=== PATIENT | female | born 1990 | race American Indian/Alaskan Native ===

== ENCOUNTER 2018-03-04 05:39 | Inpatient (IN) ==
[2018-03-04] MEDS ORDERED: Vancomycin Inj 1gm vial ONE (05:52)
[2018-03-04] MEDS ORDERED: Clindamycin 900mg (Premix) 900 MG/50 ML BAG IV ONE ×2 (05:52→06:00)
[2018-03-04] MEDS ORDERED: Sodium Chloride 0.9% 250 ML ONE (05:53)
[2018-03-04] MEDS ORDERED: Lactated Ringers 1,000 ML PRIMARY IV ONE ×4 (05:53→09:53)
[2018-03-04] MEDS ORDERED: LIDOCAINE W/ SODIUM BICARB 0.5 ML SYR ONE (05:53)
[2018-03-04] MEDS ORDERED: LIDOCAINE W/ SODIUM BICARB 0.5 ML SYR SUBD ONE (06:00)
[2018-03-04] MEDS ORDERED: Nasal Sanitizer POPSWAB ampule 3 AMP (Nozin) PREOP DOSE ENOS SCH (06:00)
[2018-03-04 06:10] LABS: URINE SPECIFIC GRAVITY - MAN 1.034
[2018-03-04] MEDS ORDERED: Sodium Chloride 0.9% vial 20 ML ONE (06:59)
[2018-03-04] MEDS ORDERED: MIDAZOLAM HCL 2 MG/2 ML VIAL ONE (06:59)
[2018-03-04] MEDS ORDERED: fentaNYL Inj 250 MCG/5 ML VIAL ONE (06:59)
[2018-03-04] MEDS ORDERED: PROPOFOL 10 MG/1 ML (200 MG/20 ML) VIAL IV ONE (06:59)
[2018-03-04] MEDS ORDERED: LIDOCAINE MPF 2% - 5 ML (20 MG/1 ML) ONE (06:59)
[2018-03-04] MEDS ORDERED: BACITRACIN 50,000 UNIT VIAL IRRIG ONE (07:00)
[2018-03-04] MEDS ORDERED: BUPIVACAINE 0.25% W/ EPI - 10 ML VIAL ONE ×2 (07:00→09:49)
[2018-03-04] MEDS ORDERED: REMIFENTANIL HCL 2 MG VIAL IV ONE (07:06)
[2018-03-04] MEDS ORDERED: KETAMINE HCL 100 MG/2 ML SYRINGE IV ONE (08:06)
[2018-03-04] MEDS ORDERED: ePHEDrine Inj 50 MG/ML AMP ONE (08:07)
[2018-03-04] MEDS ORDERED: Propofol 1,000 MG/100 ML VIAL IV ONE (08:39)
[2018-03-04] MEDS ORDERED: TRANEXAMIC ACID 1,000 MG / 10 ML VIAL ONE (09:21)
[2018-03-04] MEDS ORDERED: BUPivacaine 0.5%/Epi Inj 50 ML VIAL ONE (09:48)
[2018-03-04] MEDS ORDERED: BUPivacaine Inj 0.5% PF (5mg/ml) 10ml vial ONE (09:53)
[2018-03-04] MEDS ORDERED: HYDROmorphone 2 MG/1 ML ONE (10:02)
[2018-03-04] MEDS ORDERED: ONDANSETRON 4 MG/2 ML VIAL ONE (10:20)
[2018-03-04] MEDS ORDERED: Prochlorperazine Edisylate Inj 10mg/2ml vial IVP PRN ×2 (10:36→12:25)
[2018-03-04] MEDS ORDERED: MAGNESIUM 400 MG/5 ML - 30 ML (MILK OF MAGNESIA) PO PRN ×2 (10:36→12:25)
[2018-03-04] MEDS ORDERED: DOCUSATE 100 MG CAPSULE PO PRN ×2 (10:36→12:25)
[2018-03-04] MEDS ORDERED: Fleet Enema 133ml RECTAL PRN ×2 (10:36→12:25)
[2018-03-04] MEDS ORDERED: MORPHINE SULFATE 2 MG/1 ML IVP PRN ×3 (10:36→12:25)
[2018-03-04] MEDS ORDERED: HYDROcodone-APAP 5 MG -325 MG TABLET PO PRN ×2 (10:36→12:25)
[2018-03-04] MEDS ORDERED: BISACODYL 5 MG TABLET PO PRN ×2 (10:36→12:25)
[2018-03-04] MEDS ORDERED: ONDANSETRON 4 MG/2 ML VIAL IVP PRN ×2 (10:36→12:25)
[2018-03-04] MEDS ORDERED: PROMETHAZINE 25 MG/1 ML VIAL IM PRN ×3 (10:36→12:25)
[2018-03-04] MEDS ORDERED: HYDROcodone-APAP 7.5 MG-325 MG TABLET PO PRN ×2 (10:36→12:25)
[2018-03-04] MEDS ORDERED: DIAZEPAM 5 MG TABLET PO PRN (10:36)
[2018-03-04] MEDS ORDERED: Ondansetron ODT Tab 4 MG TAB PO PRN ×2 (10:36→12:25)
[2018-03-04] MEDS ORDERED: MAGNESIUM CITRATE 296 ML SOLUTION PO PRN ×2 (10:36→12:25)
[2018-03-04] MEDS ORDERED: HYDROcodone-APAP 10 MG-325 MG TABLET PO PRN (10:36)
[2018-03-04] MEDS ORDERED: Vancomycin-PHA to Dose IV SCH (10:45)
--- NOTE | 2018-03-04 10:46 | GEN.OPNOTE ---
Operative Note Surgery Date: 03/04/18 Preoperative Diagnosis: 1. Left L5 radiculopathy. 2. Large left L4-5 paracentral/lateral herniated nucleus pulposus, caudally migrated from the disc space effacing the lateral recess and impinging upon and posteriorly displacing the transversing left L5 nerve root. Postoperative Diagnosis: 1. Left L5 radiculopathy. 2. Large left L4-5 paracentral/lateral herniated nucleus pulposus, caudally migrated from the disc space effacing the lateral recess and impinging upon and posteriorly displacing the transversing left L5 nerve root. Procedure: 1.) Left L4-5 microlumbar discectomy. (CPT code: 56747). 2.) Use of the operative microscope for the microsurgical techniques used for the procedure. (CPT code: 44088). 3.) Use of intra-operative fluoroscopy for localization of correct surgical level. 4.) Use of intra-operative neuromonitoring including EMG's and SSEP's. Surgeon: Mati Herron MD Turret Punch Operator: DEBBIE Santos Anesthesia Provider: Kunal Monge CRNA Anesthesia Type: General Estimated Blood Loss (mL): 100 Fluids: See anesthesia record Pathology: None Indications: Ms. Barker is a 27 year old female with over three months of left buttock and left leg pain that started after a fall with her symptoms unresponsive to non- operative therapies. She had a large caudally migrated left L4-5 herniated nucleus propulsis on imaging. We discussed proceeding with a left L4-5 microlumbar discectomy. She wished to proceed with surgical treatment. Findings: Large subligamentous left L4-5 herniated nucleus propulsis extruded from the disc space as well as caudally behind the L5 vertebral body Complications: None Operative Summary: Ms. Barker was met in the preoperative area. Her surgical history and physical in her chart was reviewed. The procedure to be performed was confirmed with Ms. Barker and this matched what was written on the patient's consent form. Any questions that Mrs. Barker or her family members had were answered before she was taken back to the operating room suite. Ms. Barker was brought back to the operating room suite and put under general anesthesia and intubated by the anesthesia staff. She had a Garcia catheter placed or bladder for the procedure. She had pneumatic compression hose placed on her lower legs bilaterally. Ms. Barker was carefully rolled over onto the Grover surgical table with her a dotty gently positioned upwards with her shoulders abducted less than 90. Her arms were well-padded with foam padding on top of the padding the surgical armboards. The region of her chest and axilla was checked to be free with no pressure points over the region of the brachial plexus bilaterally. Her breasts were checked be below the chest pad of the Grover table with no pressure points over the nipples. All bony prominences were well padded. Her Garcia catheter was checked be free from kinks. Her pneumatic compression hose was attached pneumatic compression device. The C-arm fluoroscopy unit was used to help localize the skin incision for the approach the intended surgical level. The skin was marked with a skin marker was several crosshatches made with a skin marker as well. Ms. Barker was prepped and draped in usual and standard fashion. She was given 900 mg of Cleocin and a gram of vancomycin IV for perioperative antibiosis. She was given 10 mg of Decadron IV. A standard surgical timeout was performed identifying the correct patient, the correct procedure, and the correct equipment being available for the procedure. The intended skin incision was injected subcutaneously with quarter percent Marcaine with 1 in 200,000 epinephrine. 10 mL of local anesthetic was used. The skin was incised with 10 blade scalpel and all dermal and superficial bleeding points were controlled with bipolar cautery. Dissection was continued down through the copious subcutaneous tissue to the lumbar fascia. The lumbar fascia was incised along the border the spinous processes on the left and subperiosteal dissection was performed down the spinous processes and out over the lamina. When the inferior aspect of the lamina was identified a Anderson 4 was placed underneath the lamina and lateral fluoroscopy localized the L4-5 level on the left. Continued subperiosteal dissection was performed until the majority of the L4 lamina and the majority of the L5 lamina and the medial aspect of the L4- 5 facet joint on the left was exposed. A Sean retractor was placed for self-retaining retraction. The operative microscope was brought into the surgical field and used for micro surgical techniques used for the procedure. The high-speed [employer] Gorge drill with a matchstick bit was used to perform a hemilaminotomy and medial facetectomy and also used to remove remove the upper leading edge of the L5 lamina over the canal and lateral recess. An up angled curette was used to strip the insertion of the yellow ligament from underneath remaining aspect the L4 lamina. The plane between the yellow ligament and the dura was established. The yellow ligament was completely removed in the hemilaminectomy/medial facetectomy site exposing the thecal sac, the lateral recess, and the takeoff of the transversing L5 nerve root. The transversing L5 nerve root was exposed in the center portion of the bony decompression. A Anderson 4 instrument was used to carefully dissect the soft tissue caudal to the transversing L5 nerve root as it proceeded out it's neuroforamen underneath the L5 pedicle. The dura could be seen to be quite tented dorsally from the left L4-5 subligamentous disc herniation extruded caudally underneath the L5 nerve root also posteriorly displacing the L5 nerve root and with the subligamentous disc material continuing caudally in the lateral recess caudal to the exit of the L5 nerve root out it's neuroforamen, continuing to posteriorly displace the thecal sac in this region In the axilla of the transversing L5 nerve root careful dissection was performed exposing the plane between the stretched posterior longitudinal ligament and the inferior aspect of the transversing L5 nerve root and the thecal sac. The base of the stretched ligament was carefully punctured with a nerve hook and disc material was carefully teased out with a nerve hook with the fragments subsequently being removed with a pituitary rongeur. A number of additional disc fragments were carefully teased out from underneath the posterior longitudinal ligament using the nerve hook or the small ball-tip instrument with the fragments being removed with the pituitary rongeur. The pocket of subligamentous disc material was completely removed in this region which was confirmed by visual inspection as well as by palpation with a Aarti instrument. Attention was turned to the disc space proper. A Anderson 4 was used to carefully dissect the soft tissue adjacent to the takeoff or shoulder of the transversing L5 nerve root identifying the disc space proper. The large subligamentous disc herniation started at the level of the disc space with some of the disc material extruded underneath the thecal sac and the proximal aspect of the transversing L5 nerve root behind the superior posterior aspect of the L5 vertebral body. A Kareem nerve root retractor was used to gently retract the thecal sac and the takeoff of the L5 nerve root. Epidural veins over the disc space were coagulated with bipolar cautery turned down to a low setting. An annulotomy was performed with a 15 blade scalpel with this material being removed with a pituitary rongeur. The fragments of disc in the disc space proper were disrupted and part of the disc space was essentially empty from the large extruded disc herniation. What disc material there was however in the posterior aspect of the disc space was removed with a pituitary rongeur both straight instrument and an up angled pituitary rongeur. The subligamentous disc herniation extending underwritten the thecal sac and the proximal aspect of the transversing L5 nerve root was removed by working under the thecal sac with a medium Simon down-biting curet with the large fragments of disc being removed from this area. Palpating medially under the thecal sac there was still dorsal displacement of the thecal sac from the bulging annulus medially in the central portion of the canal. This was carefully dissected underneath the thecal sac using both Aarti instrument and the medium down-biting curet with the bulging annulus being removed with a pituitary rongeur. Excellent decompression of spinal canal the lateral recess and the exiting L4 nerve root and the transversing L5 nerve root and the L5 nerve root as it exited out it's neuroforamen and the thecal sac caudal to the exit of the L5 nerve root out its foramen was assured both by visual inspection as well as by palpation in the canal and lateral recess in these regions and around the nerve structures. The surgical site was copiously irrigated with bacitracin irrigation. Meticulous hemostasis was performed with bipolar cautery turned down to a low setting as well as with FloSeal hemostatic agent. Surgical site was again irrigated with bacitracin irrigation. The hemilaminotomy and medial facetectomy site and all dural elements were covered with FloSeal hemostatic agent. The closure portion of the procedure was begun. The Sean retractor was removed. The duran of the dissection plane were inspected for any bleeding points. Any identified were coagulated with bipolar cautery. A cerebellar retractor was used to retract the copious subcutaneous tissue and the lumbar fascia was closed tightly with #1 Vicryl suture in an interrupted fashion. The cerebellar retractor was then removed. The surgical site was again copiously irrigated with bacitracin irrigation. The deep subcutaneous tissue and fascia was reapproximated with 2-0 Vicryl suture in a interrupted fashion. The more superficial subcutaneous tissue was closed with a nother layer of 2-0 Vicryl suture in a inverted interrupted fashion. The dermis and superficial subcutaneous tissue was reapproximated with 3-0 Vicryl suture in an inverted interrupted fashion. The Ioban drape was pulled back from the skin edges the skin edges were cleansed with bacitracin split soaked sponge and dried with sterile dry sponge. The incision was covered with Steri-Strips and the incision was then dressed. All surgical drapes removed from Ms. Barker. She was carefully rolled over onto the PACU stretcher. She was awoken and a the anesthesia staff. She was taken the recovery room stable condition. All surgical counts reported as correct by the scrub and circulating personnel. A physician's it administrative assistant, Mrs. Genevieve Hector PA-C, assisted with the procedure including the exposure and closure portions of the procedure. She also provided irrigation and suctioning throughout the procedure. She also skillfully and carefully retracted the nerve structures during the more critical portions of the procedure, the discectomy.
[2018-03-04] MEDS ORDERED: fentaNYL Inj 100 MCG/2 ML VIAL IVP PRN ×2 (11:21→12:25)
[2018-03-04] MEDS ORDERED: LIDOCAINE W/ SODIUM BICARB 0.5 ML SYR SUBD PRN (11:21)
[2018-03-04] MEDS ORDERED: HYDROmorphone 2 MG/1 ML IVP PRN ×2 (11:21→12:25)
--- NOTE | 2018-03-04 11:22 | CRNA.PROGR ---
Anesthesia Time - Procedure/Recovery Time Start Date: 03/04/18 End Date: 03/04/18 Anesthesia : Time In: 07:30 Anesthesia : Time Out: 10:38 Anesthesia : Total Time: 188 - Total Anesthesia Time Total Anesthesia Time (minutes): 188 - Other Weight: 79.379 kg Height: 5 ft Body Mass Index (BMI): 34.2 Physical Status: P2 Anesthesia Type: General Anesthesia : ET (Prone)
--- NOTE | 2018-03-04 11:22 | CRNA.PROGR ---
Anesthesia Recovery Phase I - Post Anesthesia Evaluation Patient's Condition on Arrival in Phase I: Stable Pain Level: 3
[2018-03-04] MEDS ORDERED: Lactated Ringers 1,000 ML PRIMARY IV SCH (11:30)
--- NOTE | 2018-03-04 11:47 | NEURO.PROG ---
Subjective Post Op Day: 0 Pain Management: PO Garcia Catheter: Yes Diet: Regular Ambulating: Yes Additional Details: Just arrived on surgical floor. Awake, alert, and oriented. Lying comfortably in bed. Left leg feels good. Moving all extremities. Good/strong dorsiflexion/plantarflexion bilaterally. PLAN: 1.) Continue post-operative antibiotics. 2.) Continue post-operative pain control. 3.) Advance diet. 4.) Mobilize. Objective : Data - Vital Signs Vital Signs and I&O: Vital Signs - Last Taken Temperature 97.8 F 03/04/18 11:43 Pulse Rate 82 03/04/18 11:43 Respiratory Rate 20 03/04/18 11:43 Blood Pressure 108/74 03/04/18 11:43 Pulse Ox 97 03/04/18 11:43 Intake and Output (24hr x 4 totals) 03/02/18 03/03/18 03/04/18 03/05/18 05:59 05:59 05:59 05:59 Intake Total 2400 / 2400 Output Total 175 / 175 Balance 2225 / 2225
[2018-03-04] MEDS: HYDROcodone-APAP 10 MG-325 MG TABLET PO PRN ×3 (13:00→21:24)
--- NOTE | 2018-03-04 14:54 | CONSULT ---
Consult Note - Consult Reason for Consult: PostOp Consulation : Neuro Primary Care Provider: NONE NONE - History of Present Illness History of Present Illness: This very nice 27-year-old female who fell on ice 3 months ago and the was operated by Dr. Herron today a left L4-5 microlumbar discectomy hospitalist service was consult with postop. Patient denies chest pain nausea or vomiting and is doing physical therapy. She has no other complaints or medical issues she tells me Past Medical History Medical History: Asthma, migraines Surgical History: Back surgery Tobacco Use: Current Every Day Smoker In the Past 12 Months, Have Used or Abuse Any of the Following Substance: None Review of Systems - Review of Systems All Systems: Reviewed & No Additional Complaints Except as Stated - Respiratory Respiratory: DENIES: Negative System Review, Cough, Sputum, Dyspnea At Rest, Dyspnea with Exertion, Pleuritic Pain, Hemoptysis, Wheezing, Other, See HPI - Cardiovascular Cardiovascular: DENIES: Negative System Review, Chest Pain, Edema, Syncope, Palpitations, Orthopnea, Paroxysmal Nocturnal Dyspnea, Other, See HPI - Gastrointestinal Gastrointestinal / Abdominal: DENIES: Negative System Review, Nausea, Vomiting, Diarrhea, Constipation, Abdominal Pain, Bloody Stool, Poor Appetite, Heartburn, Regurgitation, Bloating, Lactose Intolerance, Melena, Bright Red Blood per Rectum, Other, See HPI Medication / Allergies Home Medications: Home Medications Medication Instructions Recorded Confirmed Type NK 02/01/18 02/21/18 History Allergies/Adverse Reactions: Allergies Allergy/AdvReac Type Severity Reaction Status Date / Time ibuprofen [From Motrin] Allergy HIVES Verified 03/04/18 11:36 Penicillins Allergy HIVES Verified 03/04/18 11:36 Exam - Vitals Vital Signs: Vital Signs Temperature 97.8 F Temperature Source Oral Pulse Rate [Pulse Oximeter] 82 Pulse Rate 86 Respiratory Rate 20 Blood Pressure [Left Arm] 108/74 Blood Pressure 107/65 Pulse Ox 97 Oxygen Flow Rate 2 Oxygen Delivery Method Nasal Cannula Height 5 ft Weight 175 lb - General General Appearance: No Acute Distress, Cooperative - Respiratory Respiratory Exam: POSITIVE: Clear to Auscultation - Bilaterally, Breathing Non Labored, Normal To Percussion, Normal to Percussion and Palpation - Cardiovascular Cardiovascular Exam: POSITIVE: RRR, No Murmur, No Clicks, No Gallops, No Rubs, PMI Non-Displaced - GI/Abdominal GI/Abdominal Exam: POSITIVE: Normal Bowel Sounds, Non Tender, Non Distended, Soft, No Masses, No Hepatomegaly, No Splenomegaly, No Organomegaly - Rectal Rectal Exam: POSITIVE: Deferred Assessment and Plan - Patient Problems (1) Asthma Current Visit: No Status: Chronic Comment: Stable patient does not have any symptoms Code(s): J45.909 - Unspecified asthma, uncomplicated (2) Migraines Current Visit: No Status: Chronic Comment: Patient does not have a migraine Code(s): G43.909 - Migraine, unspecified, not intractable, without status jung rainosus (3) Sleep apnea Current Visit: No Status: Chronic Comment: Recommended the CPAP and evaluation as an outpatient Code(s): G47.30 - Sleep apnea, unspecified (4) History of back surgery Current Visit: Yes Status: Acute Comment: Deferred to Dr. Herron for postop management and PT and OT orders and pain control Code(s): Z98.890 - Other specified postprocedural states - Assessment / Plan Additional Assessment/Plan Details: No medical issues to address at present time I told the nurses to call me if there is a problem
[2018-03-04] MEDS: Clindamycin 900mg (Premix) 900 MG/50 ML BAG IV SCH ×2 (15:02→22:03)
[2018-03-04] MEDS ORDERED: Clindamycin 900mg (Premix) 900 MG/50 ML BAG IV SCH (16:00)
[2018-03-04] MEDS: DIAZEPAM 5 MG TABLET PO PRN (19:41)
[2018-03-05] MEDS: HYDROcodone-APAP 10 MG-325 MG TABLET PO PRN ×3 (01:13→10:13)
[2018-03-05] MEDS: DIAZEPAM 5 MG TABLET PO PRN (01:14)
[2018-03-05 04:46] LABS: BASOPHILS # (AUTO) 0.01 10*3/UL; BASOPHILS % (AUTO) 0.1 % (0-1); EOSINOPHILS # (AUTO) 0 10*3/UL; EOSINOPHILS % (AUTO) 0 % (0-8); Hematocrit [HCT] 37.3 % (37.0-47.0); Hemoglobin [HGB] 12.6 g/dL (12.0-16.0); LYMPHOCYTES # (AUTO) 1.62 10*3/uL; MEAN CORPUSCULAR HEMOGLOBIN 31.7 PG (27-31); MEAN CORPUSCULAR HGB CONC 33.8 g/dL (33-37); MEAN CORPUSCULAR VOLUME 93.7 FL (81-99); MEAN PLATELET VOLUME 9.7 FL (7.4-12.2); MONOCYTES # (AUTO) 0.77 10*3/UL (0.3-0.8); MONOCYTES % (AUTO) 5.3 % (5-15); NEUTROPHILS # (AUTO) 11.99 10*3/UL; NEUTROPHILS % (AUTO) 83.3 % (50-80); RED BLOOD COUNT 3.98 10^6/uL (4.20-5.40)
[2018-03-05 04:59] LABS: BLOOD UREA NITROGEN 4 mg/dL (7-22)
[2018-03-05 05:21] LABS: PLATELET MORPHOLOGY COMMENT NORMAL MORPHOLOGY (NORM); RBC MORPHOLOGY COMMENT NORMAL MORPHOLOGY (NORM); WBC MORPHOLOGY COMMENT NORMAL MORPHOLOGY (NORM)
--- NOTE | 2018-03-05 05:53 | NEURO.PROG ---
Subjective Post Op Day: 2 Pain Management: PO Garcia Catheter: No Flatus: Yes Diet: Regular Ambulating: Yes Additional Details: Justine is awake and alert and ready to go home. V/S are stable. Incision is dry and intact. Her strength is full in dorsi/plantar flexion and knee flexion bilaterally. She says that the preop symptoms of numbness and pain are completely resolved. Incidentally she also says the numbness she had in her left hand preop has resolved. She has ambulated multiple times through the night without difficulty. Her pain is in good control with oxydocone and we will start her on flexeril for home. She was given post operative instructions regarding activity with her corset, no driving while on narcotics, and care of her incision with chlorhexadine wipes and dressing changes x 7 days. She was also given a post op appointment to see Dr. Herron in the [place] [facility] on 03/28/2018 at 10:00. Plan discharge home. Objective : Data - Labs CBC and BMP: 03/05/18 04:21 03/05/18 04:21 - Vital Signs Vital Signs and I&O: Vital Signs - Last Taken Temperature 98.0 F 03/05/18 04:17 Pulse Rate 56 L 03/05/18 04:17 Respiratory Rate 16 03/05/18 04:17 Blood Pressure 98/65 03/05/18 04:17 Pulse Ox 99 03/05/18 04:17 Intake and Output (24hr x 4 totals) 03/02/18 03/03/18 03/04/18 03/05/18 05:59 05:59 05:59 05:59 Intake Total 5621 / 5621 Output Total 3725 / 3725 Balance 1896 / 1896
--- NOTE | 2018-03-05 06:06 | NEURO.PROG ---
Subjective Post Op Day: 1 Pain Management: PO Garcia Catheter: No Flatus: Yes Diet: Regular Ambulating: Yes Additional Details: Correction on previous progress note is that Justine is taking Hydrocodone, not oxycodone. She was discharged on Hydrocodone. Objective : Data - Labs CBC and BMP: 03/05/18 04:21 03/05/18 04:21 - Vital Signs Vital Signs and I&O: Vital Signs - Last Taken Temperature 98.0 F 03/05/18 04:17 Pulse Rate 56 L 03/05/18 04:17 Respiratory Rate 16 03/05/18 04:17 Blood Pressure 98/65 03/05/18 04:17 Pulse Ox 99 03/05/18 04:17 Intake and Output (24hr x 4 totals) 03/03/18 03/04/18 03/05/18 03/06/18 05:59 05:59 05:59 05:59 Intake Total 5621 / 5621 Output Total 4525 / 4525 Balance 1096 / 1096
[2018-03-05 06:24] VITALS: BP 102/60; RESP 17; TEMP 97.8; O2SAT 96
[2018-03-05] MEDS ORDERED: PANTOPRAZOLE 40 MG TABLET PO SCH ×2 (07:00)
--- NOTE | 2018-03-05 10:13 | PTI REPORT ---
Thank you for the referral of Justine Barker. She was seen on 03/04/18 for an inpatient evaluation status post laminectomy. SUBJECTIVE: The patient is a 27-year-old female who is status post laminectomy. The patient reports that she currently has 8/10 back pain with complaints of throbbing pain. She states that prior to her surgery she was having a lot of numbness and tingling down her left lower extremity and she states that since surgery her left leg already feels better. The patient lives in [place] with family members. She states that she has five steps with bilateral hand rails to get into the trailer home and then everything is on one level once she is inside the home. The patient denies any use of assistive devices prior to surgery. She states that she was independent with all ADLs and denies any falls over the last three months. PAST MEDICAL HISTORY: Past medical history can be found in the patient's medical record. OBJECTIVE FINDINGS: General observations: The patient was alert and oriented to setting upon PT arrival. The patient did have a catheter and an IV in place and was on two liters of oxygen. The patient was instructed in precautions for status post laminectomy. Bed mobility: The patient was instructed on how to properly perform a log roll prior to the patient performing a log roll to go from supine to seated edge of bed. The patient required maximal verbal cueing and min assist. Once sitting edge of bed the patient stated she was a little lightheaded and dizzy. The patient demonstrated good seated edge of bed balance. While she was seated edge of bed, a soft back brace was placed around the patient along with a gait belt. The patient required mod assist x1 in order to perform a log roll back to supine in order to help lift up her bilateral lower extremities. Transfers: The patient was instructed on a sit to stand transfer and was able to complete transfer with contact guard assist x2. Once standing, the patient denied any lightheadedness or dizziness. The patient was able to perform a stand to seated transfer to sitting edge of bed with stand by assist x1 for safety. Ambulation: The patient was able to ambulate 30 feet with front wheeled walker and contact guard assist x1 for safety. ASSESSMENT: The patient has good rehab potential. Problem List: Patient is status post laminectomy Back pain Decreased functional mobility Short-Term Goals: To be met by discharge from inpatient: Patient will be able to correctly perform a log roll into and out of bed. Patient will be able to perform transfers independently. Patient will be able to ambulate at least 150 feet with least restrictive assistive device safely and independently. Patient will be able to perform 5 stairs safely and independently. Long-Term Goals: To be met following discharge from inpatient: Patient may be seen by outpatient physical therapy if deemed necessary upon time of discharge. TREATMENT PLAN: Patient will be seen B.I.D during the week and one time per day over the weekend as an inpatient to address the above goals and objectives. INITIAL TREATMENT: Treatment today consisted of the initial evaluation and one unit of functional activity. Following treatment the patient was left in bed. Once supine in bed, the patient's SCDs were placed back on her lower extremities and her call light was placed within reach. [facility]
--- NOTE | 2018-03-05 11:12 | PT.PROG ---
Progress Note Progress Note: S. Patient stated that her back is throbbing. O. Patient ambulated 75 feet to the stair well and ascended and descended 5 stairs then was wheeled back to her room where she was left in bed, with alarm and call light. A. Patient tolerated ambulation and stair training well, she was unable to ambulate back to her room due to knee pain. P. Patient has met all goals at this time.
[2018-03-05] MEDS ORDERED: NALOXONE 0.4 MG/1 ML VIAL ONE (14:07)
--- NOTE | 2018-03-06 11:26 | OTI REPORT ---
Thank you for the referral of Justine Barker. She was seen on 03/05/18 for an occupational therapy inpatient evaluation status post laminectomy. SUBJECTIVE: The patient is a 27-year-old female who is being seen secondary to having a lower back laminectomy. The patient lives in [place] and has a couple small children. Prior to admission she was having numbness in her leg. Since the surgery this has relieved some of that pain. PAST MEDICAL HISTORY: Past medical history can be found in the patient's medical record. OBJECTIVE FINDINGS: Today the patient was educated and instructed in her back precautions. She was issued a television news video editor, sock aide, bath sponge, and long handled shoe horn. They were going to look at the clinic for a high rise toilet seat that she could borrow in [place]. The patient was able to doff socks with use of television news video editor. She was able to don underwear and pants with use of television news video editor and stand with good balance to pull pants to waist level. The patient then used sock aide in order to don socks on her feet independently after demonstration and also worked on donning shoes with use of long handled shoe horn and television news video editor. The patient was not able to do this without the adaptive devices. The patient will definitely need these as she is going to be home by herself throughout the day. Her mom will be able to come over and help at times, but overall she would benefit from adaptive devices to not bend or twist or lift. ASSESSMENT: The patient will be seen by occupational therapy for evaluation only for instruction on use of adaptive devices. The patient was able to use adaptive devices with modified independence. The patient is aware of her precautions. TREATMENT PLAN: Patient will be discharged from occupational therapy at this time. INITIAL TREATMENT: Treatment today consisted of the initial evaluation followed by instruction on use of adaptive devices. BEN
== END 2018-03-05 10:40 | disposition home or self-care (01) | DRG 520 ==
LOC: OPS 05:39 → MED/SURG 11:22
PROVIDERS: ADMIT Neurological Surgery; ATTEND Neurological Surgery